=== PATIENT | female | born 1985 | race Caucasian/White ===

== ENCOUNTER → 2016-08-24 | Outpatient (CLI) | payer OTHER ==
[~2016-08-24] MED LIST: ANUSOL-HC25 MG RC; DIFLUCAN150 MG PO; FLEXERIL10 MG PO; LOMOTIL 0.025 M1 TA1 PO; MEDROL DOSEPAK4 MG PO; NAPROSYN500 MG PO; PERCOCET 325 MG1 TA2 PO; PERCOCET 325 MG1 TA7 PO; ULTRAM50 MG PO; VICODIN 5/500 505 MG PO; VICODIN ES 7501 TAB PO; ZITHROMAX Z PA250 MG PO; ZOFRAN ODT4 MG SL
== END | disposition home or self-care (01) ==
LOC: US 11:00
DX: K76.0 Fatty (change of) liver, not elsewhere classified (principal); R74.8 Abnormal levels of other serum enzymes; Z90.49 Acquired absence of other specified parts of digestive tract

== ENCOUNTER → 2021-06-08 | Outpatient (CLI) | payer OTHER | LOC: COVID19 16:38 | PROVIDERS: ATTEND Internal Medicine | DX: U07.1 COVID-19 (principal) ==

== ENCOUNTER 2023-09-30 14:35 | Emergency (ER) | payer OTHER ==
[~2023-09-30] VITALS: Ht 149.8 cm; Wt 81.6 kg
[2023-09-30] MEDS ORDERED: ESCITALOPRAM OX20 MG PO (14:59)
[2023-09-30] MEDS ORDERED: DEXTROAMPH SACC20 M1 PO (14:59)
[2023-09-30] MEDS ORDERED: Tdap Vaccine 0.5 ML SYR (Adult Vaccine) IM ONE (15:40)
== END 2023-09-30 15:55 | disposition home or self-care (01) ==
LOC: ED 14:35
DX: S61.211A Laceration without foreign body of left index finger without damage to nail, initial encounter (principal); F17.200 Nicotine dependence, unspecified, uncomplicated; Z88.6 Allergy status to analgesic agent; Z79.899 Other long term (current) drug therapy; W29.3XXA Contact with powered garden and outdoor hand tools and machinery, initial encounter; Y93.89 Activity, other specified; Y92.89 Other specified places as the place of occurrence of the external cause; Y99.8 Other external cause status